=== PATIENT | male | born 1955 ===

== ENCOUNTER 2017-04-21 16:52 | Emergency (ER) | payer OTHER ==
[~2017-04-21] VITALS: Ht 182.9 cm; Wt 113.0 kg
[2017-04-21 16:56] VITALS: Ht 182.9 cm; Wt 113.0 kg
--- NOTE | 2017-04-21 18:29 | ERD ---
ER Documentation Chief Complaint Date/Time DATE: 04/21/17 TIME: 18:16 Chief Complaint Pt with R ankle pain X 2 weeks, dx with ligament injury. HPI 61-year-old male patient with a past medical history of diabetes presents to the ED complaining of right ankle pain that started 2 weeks ago. Reports that he sustained an ankle injury while he was walking down the stairs. States that he twisted it. Reports that he was initially seen at [facility] and had a negative x-ray findings for fractures or dislocations. Reports that they diagnosed him with an ankle sprain. Patient is here for an toe walking boot. States that they also did a venous ultrasound which was negative for a DVT. Denies any fever, chills, weakness, numbness or tingling, loss of sensation, loss of range of motion. ROS All systems reviewed and are negative except as per history of present illness. Allergies Allergies: Coded Allergies: No Known Allergy (Unverified , 04/21/17) PMhx/Soc Medical and Surgical Hx: pt denies Surgical Hx Hx Cardiac Disorders: Yes (HTN) Hx Miscellaneous Medical Probl: Yes (DM) Hx Alcohol Use: No Hx Substance Use: No Hx Tobacco Use: No Smoking Status: Never smoker Physical Exam Vitals Vital Signs Date Time Temp Pulse Resp B/P Pulse Ox O2 Delivery O2 Flow Rate FiO2 04/21/17 16:56 97.7 96 16 132/90 98 Physical Exam Const: Idu-sdn-usljkzadm, well-nourished. In no acute distress. Head: Atraumatic, normocephalic Eyes: Normal Conjunctiva without injection ENT: Normal external ear, nose and mouth. Neck: Full range of motion. No meningismus. Resp: Clear to auscultation bilaterally. No wheezing, rhonchi, rales, or crackles. No accessory muscle use. No retractions. Cardio: Regular rate and rhythm, no murmurs Skin: No petechiae or rashes Back: No midline tenderness. No CVA tenderness. Ext: No cyanosis, or edema. Cap refill less than 2 seconds. Distal pulses intact bilaterally. Tenderness to palpation of dorsal aspect of patient's right ankle. Slight edema noted. No tenderness to palpation of calf. Neur: Awake and alert. Normal gait and coordination. Muscle strength 5/5. Sensation intact bilaterally. Psych: Normal Mood and Affect Procedures/MDM 61-year-old male patient with no significant past medical history presents the ED complaining of right ankle pain and injury. Patient is afebrile and nontoxic -appearing. Patient has normal vital signs. Patient reports xray and venous ultrasound that was done at [place] was negative for any emergent findings. No fractures, dislocations or DVT. Patient is placed in a walking boot. Splint Assessment: Neurovascularly intact pre and post splint placement with good fit. Patient's extremity symptoms have stabilized while they have been evaluated in the department and are appropriate for outpatient follow up. No evidence of fractures, dislocations, compartment syndrome, neurologic injury, vascular injury, open joint, open fracture, tendon laceration, septic arthritis, osteomyelitis, DVT, foreign body, or other emergent conditions. Follow up with primary care physician in 1-2 days. Instructed patient to return to the ED sooner for any worsening symptoms for any weakness, numbness and tingling, fever, chills, loss of sensation, loss of range of motion. Patient's questions were answered. Patient understood and agreed with discharge plan. Patient discharged stable. Departure Diagnosis: Primary Impression: Right ankle injury Encounter type: initial encounter Qualified Code: S99.911A - Right ankle injury, initial encounter Condition: Stable Patient Instructions: What Are Ankle Sprains?, Treating Ankle Sprains Referrals: [facility] YOU HAVE RECEIVED A MEDICAL SCREENING EXAM AND THE RESULTS INDICATE THAT YOU DO NOT HAVE A CONDITION THAT REQUIRES URGENT TREATMENT IN THE EMERGENCY DEPARTMENT. FURTHER EVALUATION AND TREATMENT OF YOUR CONDITION CAN WAIT UNTIL YOU ARE SEEN IN YOUR DOCTORS OFFICE WITHIN THE NEXT 1-2 DAYS. IT IS YOUR RESPONSIBILITY TO MAKE AN APPOINTMENT FOR FOLOW-UP CARE. IF YOU HAVE A PRIMARY DOCTOR --you should call your primary doctor and schedule an appointment IF YOU DO NOT HAVE A PRIMARY DOCTOR YOU CAN CALL OUR PHYSICIAN REFERRAL HOTLINE AT IF YOU CAN NOT AFFORD TO SEE A PHYSICIAN YOU CAN CHOSE FROM THE FOLLOWING [facility] [address] [facility] [address] [facility] [address] [facility] [address] [facility]. [facility] [address] [facility]. [facility] [address] [facility] YOU HAVE RECEIVED A MEDICAL SCREENING EXAM AND THE RESULTS INDICATE THAT YOU DO NOT HAVE A CONDITION THAT REQUIRES URGENT TREATMENT IN THE EMERGENCY DEPARTMENT. FURTHER EVALUATION AND TREATMENT OF YOUR CONDITION CAN WAIT UNTIL YOU ARE SEEN IN YOUR DOCTORS OFFICE WITHIN THE NEXT 1-2 DAYS. IT IS YOUR RESPONSIBILITY TO MAKE AN APPOINTMENT FOR FOLOW-UP CARE. IF YOU HAVE A PRIMARY DOCTOR --you should call your primary doctor and schedule and appointment IF YOU DO NOT HAVE A PRIMARY DOCTOR YOU CAN CALL OUR PHYSICIAN REFERRAL HOTLINE AT . IF YOU CAN NOT AFFORD TO SEE A PHYSICIAN YOU CAN CHOSE FROM THE FOLLOWING [facility] INSTITUTIONS: [facility] [address] [place] [address] [facility] [address] [place], [place] [id number] [place] [address] [address] [place] [address] [facility] Urgent Care 7 a.m.- 11 p.m. Every Day of the Week NO APPOINTMENT OR AUTHORIZATION NEEDED SO [facility] Hours: Mon-Fri 9:00 AM - 5:00 PM Additional Instructions: FOLLOW UP WITH YOUR PRIMARY CARE PHYSICIAN TOMORROW for a referral to see a saw cleaner/orthopedic physician.Return to this facility if you are not improving as expected- fever, loss of sensation, loss of range of motion, ulcers , weakness, numbness and tingling. LAZARO KING PA-C Apr 21, 2017 18:26
== END 2017-04-21 18:20 | disposition home or self-care (01) ==
LOC: FTE 16:52
DX: S99.911A Unspecified injury of right ankle, initial encounter (principal); I10 Essential (primary) hypertension; E11.9 Type 2 diabetes mellitus without complications; X50.9XXA Other and unspecified overexertion or strenuous movements or postures, initial encounter; Y92.9 Unspecified place or not applicable
CPT/HCPCS: 99282